=== PATIENT | female | born 1985 | race Two or more races ===

== ENCOUNTER → 2025-10-21 | Emergency (ER) | payer OTHER ==
[~2025-10-21] VITALS: Ht 160 cm; Wt 88.0 kg
[~2025-10-21] MED LIST: HYDROCODONE/CHLORPHEN P-STIREX 5 ML ML PO STA; LEVALBUTEROL HCL 0.63 MG/3 ML SOLUTION IH ONE; LEVALBUTEROL HCL 0.63 MG/3 ML SOLUTION IH SCH; PROMETHAZINE-D473 M1 PO; ROBITUSSIN COU237 M1 PO
[2025-10-21 20:57] VITALS: BP 101/67; O2SAT 97
[2025-10-22 00:44] LABS: URINE APPEARANCE Cloudy; URINE BILIRRUBIN Negative (NEGATIVE); URINE BLOOD Negative; URINE COLOR Yellow; URINE GLUCOSE Negative (NEGATIVE); URINE KETONE Negative (NEGATIVE); URINE LEUKOCYTE Negative; URINE NITRATE Negative; URINE PROTEIN Trace (NEGATIVE); URINE UROBILINOGEN 0.2 E.U./dl
[2025-10-22 00:47] LABS: URINE BACTERIA 4994.6 uL (0.0-1933); URINE RBC 8.4 uL (0.0-20.8); URINE WBC 57.8 uL (0.0-23.2)
[2025-10-22 00:55] LABS: BASO % 0.4 % (0.1-1.2); EOS # 0.33 (0.04-0.54); EOS % 2.9 % (0.7-7.0); LYMPH # 1.56 (1.18-3.74); LYMPH % 13.9 % (19.3-53.1); MEAN PLATELET VOLUME 9.90 fl (9.4-12.4); MONO # 0.93 (0.24-0.82); MONO % 8.3 % (4.7-12.5); NEUT # 8.29 (1.56-6.13); NEUT % 73.9 % (34.0-71.1); RED CELL DISTRIBUTION WIDTH 12.5 % (11.6-14.4)
[2025-10-22 01:31] LABS: COVID-19 AG NEGATIVE (NEGATIVE)
[2025-10-22 02:06] LABS: BUN CREA RATIO 18.0 (7.0-25.0); CREATININE SERUM 0.44 mg/dL (0.55-1.02); GFR 156.81; GLUCOSE FASTING 110.0 mg/dL (65-100); OSMOLALITY SERUM 284.0 MOSM/KG (275-295)
[2025-10-22 02:28] LABS: URINE CAST 0.28 uL (0.0-1.40); URINE CRYSTALS MODERATE /HPF; URINE EPITHELIAL CELLS > 201.7 uL (0.0-38.8)
== END | disposition home or self-care (01) ==
LOC: ER 20:52
PROVIDERS: General Practice
DX: O26.893 Other specified pregnancy related conditions, third trimester (principal); Z3A.28 28 weeks gestation of pregnancy; R05.8 Other specified cough; R10.20 Pelvic and perineal pain unspecified side; Z20.822 Contact with and (suspected) exposure to COVID-19